=== PATIENT | male | born 1990 | race Two or more races ===

== ENCOUNTER 2020-04-06 08:39 | Emergency (ER) | payer OTHER ==
[~2020-04-06] VITALS: Ht 167.6 cm; Wt 65.8 kg
[2020-04-06 09:00] VITALS: BP 143/101
[2020-04-06] MEDS ORDERED: IBUPROFEN 800 MG TAB PO ONE (09:30)
== END 2020-04-06 11:32 | disposition home or self-care (01) ==
LOC: ER 08:39 → EDBD 08:39 → ER 11:32
DX: S29.012A Strain of muscle and tendon of back wall of thorax, initial encounter (principal); S20.212A Contusion of left front wall of thorax, initial encounter; V43.52XA Car driver injured in collision with other type car in traffic accident, initial encounter; Y93.I9 Activity, other involving external motion; Y92.488 Other paved roadways as the place of occurrence of the external cause; Y99.8 Other external cause status
CPT/HCPCS: 71046; 72070